=== PATIENT | female | born 1985 | race Caucasian/White ===

== ENCOUNTER 2016-12-13 13:35 | Emergency (ER) | payer OTHER, MEDICAID ==
[2016-12-13] MEDS ORDERED: MECLIZINE HCL 25 MG TABLET PO ONE (14:06)
[2016-12-13] MEDS ORDERED: NORMAL SALINE 1000 ML 1,000 ML IV ONE ×2 (14:06→15:53)
--- NOTE | 2016-12-13 14:08 | ER Document Report ---
ED Medical Screen (RME) - General Stated Complaint: NAUSEA Mode of Arrival: Wheelchair Information source: Patient Notes: Patient complains of dizziness, nausea, and occasional confusion. Patient states that she has fallen occasionally. Patient reports symptoms started yesterday. Her Accu-Chek was 204 today. hx: Diabetes, dyslipidemia, fatty liver I have greeted and performed a rapid initial assessment of this patient. A comprehensive ED assessment and evaluation of the patient, analysis of test results and completion of the medical decision making process will be conducted by additional ED providers. TRAVEL OUTSIDE OF THE [place] IN LAST 30 DAYS: No - Related Data Allergies/Adverse Reactions: ciprofloxacin [From Cipro] Allergy (Verified 12/13/16 14:04) ciprofloxacin HCl [From Cipro] Allergy (Verified 12/13/16 14:04) levofloxacin [From Levaquin] Allergy (Verified 12/13/16 14:04) Past Medical History Pulmonary Medical History: Reports: Hx Asthma Neurological Medical History: Reports: Hx Migraine Endocrine Medical History: Reports: Hx Diabetes Mellitus Type 1, Hx Diabetes Mellitus Type 2 Renal/ Medical History: Reports: Hx Kidney Stones Psychiatric Medical History: Reports: Hx Anxiety Traumatic Medical History: Reports: Hx Fractures - right fibula Past Surgical History: Reports: Hx Gynecologic Surgery - D&C, Hx Kidney (Renal Surgery) - Immunizations Immunizations up to date: Yes Hx Diphtheria, Pertussis, Tetanus Vaccination: Yes Physical Exam - Vital signs Vitals: Temp Pulse Resp BP Pulse Ox 97.4 F 99 16 136/95 H 100 12/13/16 14:00 12/13/16 14:00 12/13/16 14:00 12/13/16 14:00 12/13/16 14:00 - General General appearance: Appears well, Alert - Neurological Cognition: Normal [place] Coma Scale Eye Opening: Spontaneous [place] Coma Scale Verbal: Oriented [place] Coma Scale Motor: Obeys Commands Zina Coma Scale Total: 15 Course - Vital Signs Vital signs: Temp Pulse Resp BP Pulse Ox 97.4 F 99 16 136/95 H 100 12/13/16 14:00 12/13/16 14:00 12/13/16 14:00 12/13/16 14:00 12/13/16 14:00
--- NOTE | 2016-12-13 14:40 | ER Document Report ---
ED Dizziness/Weakness - General Chief Complaint: Nausea Stated Complaint: NAUSEA Time seen by provider: 14:40 Mode of Arrival: Wheelchair Information source: Patient, Parent Notes: 31-year-old female type II diabetic with polycystic ovarian disease is complaining of being sick for one month. During this month it started with congested ears. She has not been feeling well with a myriad of symptoms which include sweating, sore throat, fatique, malaise, dizziness, nausea,, posterior occipital mild headache, ataxia when she gets up too fast. No chest pain, sob, abd pain. No dysuria. . TRAVEL OUTSIDE OF THE [place] IN LAST 30 DAYS: No - Related Data Allergies/Adverse Reactions: ciprofloxacin [From Cipro] Allergy (Verified 12/13/16 14:04) ciprofloxacin HCl [From Cipro] Allergy (Verified 12/13/16 14:04) levofloxacin [From Levaquin] Allergy (Verified 12/13/16 14:04) Past Medical History - General Information source: Patient - Social History Smoking Status: Current Every Day Smoker Chew tobacco use (# tins/day): No Frequency of alcohol use: None Drug Abuse: None Lives with: Family Family History: Reviewed & Not Pertinent Patient has suicidal ideation: No Patient has homicidal ideation: No Pulmonary Medical History: Reports: Hx Asthma Neurological Medical History: Reports: Hx Migraine Endocrine Medical History: Reports: Hx Diabetes Mellitus Type 2 Renal/ Medical History: Reports: Hx Kidney Stones, Hx Ovarian Cysts - PCOS. Denies: Hx Peritoneal Dialysis Psychiatric Medical History: Reports: Hx Anxiety Traumatic Medical History: Reports: Hx Fractures - right fibula Past Surgical History: Reports: Hx Gynecologic Surgery - D&C, Hx Kidney (Renal Surgery) - Immunizations Immunizations up to date: Yes Hx Diphtheria, Pertussis, Tetanus Vaccination: Yes Review of Systems - Review of Systems Constitutional: See HPI EENT: See HPI Cardiovascular: No symptoms reported Respiratory: No symptoms reported Gastrointestinal: No symptoms reported Genitourinary: No symptoms reported Female Genitourinary: No symptoms reported Musculoskeletal: No symptoms reported Skin: Other - "face breaking out" Hematologic/Lymphatic: No symptoms reported Neurological/Psychological: See HPI Physical Exam - Vital signs Vitals: Temp Pulse Resp BP Pulse Ox 97.4 F 99 16 136/95 H 100 12/13/16 14:00 12/13/16 14:00 12/13/16 14:00 12/13/16 14:00 12/13/16 14:00 Interpretation: Hypertensive - mild - General General appearance: Alert, Other - clammy face - HEENT Head: Normocephalic, Atraumatic Eyes: Normal Conjunctiva: Normal Extraocular movements intact: Yes Pupils: PERRL Nerve palsy: No Tympanic membrane: Normal Mouth/Lips: Normal Mucous membranes: Dry Pharynx: Erythema. No: Tonsillar hypertrophy, Uvular edema Neck: Supple. No: Lymphadenopathy, Meningismus - Respiratory Respiratory status: No respiratory distress Chest status: Nontender Breath sounds: Normal Chest palpation: Normal - Cardiovascular Rhythm: Regular Heart sounds: Normal auscultation Murmur: No - Abdominal Inspection: Normal Distension: No distension Bowel sounds: Normal Tenderness: Nontender. No: Tender Organomegaly: No organomegaly. No: Hepatomegaly, Splenomegaly - Back Back: Normal, Nontender. No: CVA tenderness - Extremities General upper extremity: Normal inspection, Nontender, Normal color, Normal ROM , Normal temperature General lower extremity: Normal inspection, Nontender, Normal color, Normal ROM , Normal temperature, Normal weight bearing. No: Dylan's sign - Neurological Neuro grossly intact: Yes Cognition: Normal Orientation: AAOx4 Zina Coma Scale Eye Opening: Spontaneous Zina Coma Scale Verbal: Oriented Zina Coma Scale Motor: Obeys Commands Zina Coma Scale Total: 15 Speech: Normal Motor strength normal: LUE, RUE, LLE, RLE Sensory: Normal - Psychological Associated symptoms: Normal affect, Normal mood - Skin Skin Temperature: Warm Skin Moisture: Dry Skin Color: Normal Skin irregularity: Rash - deroofed pimples Location of irregularity: Face Course - Re-evaluation Re-evalutation: 12/13/16 15:50 I have consulted with the supervisory physician per [facility] Guidelines., dr marte. ekg NSR, IV infusing, monospot positive, lactic acid 2, Head CT negative. 12/13/16 16:45 pt feels a lot better and is hungary. Urine dilute, sent to lab, drinking gingerale. She wants an excuse so she does not need to go to group therapy tomorrow at [facility], she is on suboxzone. 12/13/16 16:59 urine is negative, c/o upper chest skin turning red again and burning. No rash, looks the same to me. will order bendryl IV and will discharge home. 12/13/16 17:09 12/13/16 17:31 Instructed the patient not to engage in any sports activities that could injure the spleen or liver which includes her child her boyfriend jumping on her. I hand wrote that on to the notes because the discharge instructions were already typed. 12/13/16 17:34 Vitals stable at discharge - Vital Signs Vital signs: Temp Pulse Resp BP Pulse Ox 97.4 F 99 18 136/95 H 100 12/13/16 14:00 12/13/16 14:00 12/13/16 15:05 12/13/16 14:00 12/13/16 14:00 - Laboratory Result Diagrams: 12/13/16 14:15 12/13/16 14:15 Laboratory results interpreted by me: 12/13/16 12/13/16 12/13/16 13:57 14:15 14:15 WBC 13.4 H RBC 5.99 H MCV 78 L MCH 26.0 L Absolute Lymphocytes 4.8 H Chloride 96 L Carbon Dioxide 32 H Glucose 158 H POC Glucose 204 H AST 40 H Monotest 12/13/16 15:00 WBC RBC MCV MCH Absolute Lymphocytes Chloride Carbon Dioxide Glucose POC Glucose AST Monotest POSITIVE H Discharge - Discharge Clinical Impression: MONONUCLEOSIS, Sweating, Myalgia Fatigue Qualifiers: Fatigue type: unspecified Qualified Code(s): R53.83 - Other fatigue Condition: Good Disposition: HOME, SELF-CARE Instructions: Mononucleosis ([facility]) Additional Instructions: plenty of fluids to er if worse tylenol or motrin for discomfort keep close monitoring of your glucose to er if worse plenty of rest No sports activity that could injure the liver or spleen and no jumping / playing on the abdomen. Forms: Return to Work
[2016-12-13 14:54] LABS: ABSOLUTE BASOPHILS # (AUTO) 0.1 10^3/uL (0.0-0.2); ABSOLUTE EOSINOPHILS # (AUTO) 0.4 10^3/uL (0.0-0.6); ABSOLUTE LYMPHOCYTES (AUTO) 4.8 10^3/uL (0.5-4.7); ABSOLUTE MONOCYTES (AUTO) 0.8 10^3/uL (0.1-1.4); ABSOLUTE NEUT (AUTO) 7.4 10^3/uL (1.7-8.2); BASOPHILS % (AUTO) 0.5 % (0-2); EOSINOPHILS % (AUTO) 2.8 % (0-6); HEMATOCRIT 46.7 % (36.0-47.0); HEMOGLOBIN 15.5 g/dL (12.0-15.5); HGB HCT DIFFERENCE -0.2; LYMPHOCYTES % (AUTO) 36.1 % (13-45); MEAN CORPUSCULAR HGB CONC 33.3 g/dL (32.0-36.0); MEAN CORPUSCULAR VOLUME 78 fl (80-97); MONOCYTES % (AUTO) 5.7 % (3-13); RED BLOOD COUNT 5.99 10^6/uL (3.72-5.28); RED CELL DISTRIBUTION WIDTH 13.4 % (11.5-14.0); SEGMENTED NEUTROPHILS % (AUTO) 54.9 % (42-78); WHITE BLOOD COUNT 13.4 10^3/uL (4.0-10.5)
[2016-12-13 15:13] LABS: ALANINE AMINOTRANSFERASE 49 U/L (9-52); ALBUMIN 4.9 g/dL (3.5-5.0); ALKALINE PHOSPHATASE 69 U/L (38-126); ANION GAP 10 (5-19); ASPARTATE AMINO TRANSFERASE 40 U/L (14-36); BILIRUBIN,TOTAL 0.8 mg/dL (0.2-1.3); BLOOD UREA NITROGEN 10 mg/dL (7-20); CALCIUM 9.9 mg/dL (8.4-10.2); CARBON DIOXIDE 32 mmol/L (22-30); CHLORIDE 96 mmol/L (98-107); CREATININE RESULT 0.67 mg/dL (0.52-1.25); GLUCOSE 158 mg/dL (75-110); POTASSIUM 4.9 mmol/L (3.6-5.0); SODIUM 138.2 mmol/L (137-145); TOTAL PROTEIN 8.2 g/dL (6.3-8.2)
[2016-12-13 16:55] LABS: APPEARANCE,URINE SLIGHTLY-CLOUDY; BILIRUBIN,URINE NEGATIVE (NEGATIVE); GLUCOSE, URINE NEGATIVE (NEGATIVE); KETONES,URINE NEGATIVE (NEGATIVE); LEUKOCYTE ESTERASE,URINE NEGATIVE (NEGATIVE); NITRITE,URINE NEGATIVE (NEGATIVE); PROTEIN,URINE NEGATIVE (NEGATIVE); URINE SPECIFIC GRAVITY 1.004; UROBILINOGEN,URINE NEGATIVE mg/dL (<2.0)
[2016-12-13] MEDS ORDERED: DIPHENHYDRAMINE HCL 50 MG/ML VIAL IV ONE (16:58)
[2016-12-13 17:33] VITALS: BP 133/85
--- NOTE | 2016-12-13 19:26 | EKG REPORT ---
SEVERITY:- NORMAL ECG - SINUS RHYTHM : Confirmed by: Sarbjit Etienne 13-Dec-2016 19:25:53
== END 2016-12-13 17:33 | disposition home or self-care (01) ==
LOC: ER 13:35
DX: B27.90 Infectious mononucleosis, unspecified without complication (principal); R61 Generalized hyperhidrosis; M79.1 Myalgia; R53.83 Other fatigue; R11.0 Nausea; E11.9 Type 2 diabetes mellitus without complications; E28.2 Polycystic ovarian syndrome; F17.200 Nicotine dependence, unspecified, uncomplicated; Z88.3 Allergy status to other anti-infective agents; Z87.442 Personal history of urinary calculi; Z79.899 Other long term (current) drug therapy
CPT/HCPCS: 93005; 99284; 96374; 36415; 87070; 87086; 87880; 82962; 83605; 84703; 85025; 87088; 86308; 80053; 81001; 87804; 70450; 93010; J1200; J7030